=== PATIENT | male | born 1955 | race African-American/Black ===

== ENCOUNTER 2022-03-28 00:01 | Emergency (ER) | payer OTHER ==
[~2022-03-28] VITALS: Ht 180.3 cm; Wt 98.7 kg
[2022-03-28 01:47] LABS: CLARITY URINE CLOUDY (CLEAR); COLOR URINE YELLOW (YELLOW); KETONES URINE TRACE (NEGATIVE); LEUKOCYTE ESTERASE URINE NEGATIVE (NEGATIVE); NITRITE URINE NEGATIVE (NEGATIVE); OCCULT BLOOD URINE TRACE (NEGATIVE); PH URINE 7.5 (4.5-8.0); PROTEIN URINE NEGATIVE (NEGATIVE); SPECIFIC GRAVITY URINE 1.024 (1.005-1.030)
[2022-03-28 01:54] LABS: CHLORIDE 109 mEq/L (98-107)
[2022-03-28 09:06] VITALS: BP 158/84
== END 2022-03-28 09:09 | disposition home or self-care (01) ==
LOC: ER 00:21
DX: R33.9 Retention of urine, unspecified (principal); R39.15 Urgency of urination
CPT/HCPCS: 36415; 51702; 80048; 81003; 99285; Z7610